=== PATIENT | female | born 1990 | race Caucasian/White ===

== ENCOUNTER 2022-03-11 12:14 | Emergency (ER) | payer MEDICAID ==
[~2022-03-11] VITALS: Ht 170.2 cm; Wt 108.0 kg
[2022-03-11 12:21] VITALS: BP_SYST 138
--- NOTE | 2022-03-11 15:00 | NUR ---
DR KAHN IN FOR EXAM
[2022-03-11 15:38] LABS: BASOPHILS # (AUTO) 0.1 K/uL (0.0-0.2); BASOPHILS % (AUTO) 0.6 % (0.0-2.0); EOSINOPHILS % (AUTO) 0.6 % (0.0-4.0); HEMATOCRIT 35.2 % (36-48); HEMOGLOBIN 11.4 g/dL (12.0-16.0); LYMPHOCYTES # (AUTO) 2.8 K/uL (1.0-5.5); LYMPHOCYTES % (AUTO) 33.9 % (20.5-51.5); MEAN CORPUSCULAR HEMOGLOBIN 22 pg (27-31); MEAN CORPUSCULAR HGB CONC 32 % (32-36); MEAN CORPUSCULAR VOLUME 67 fL (79.0-98.0); MONOCYTES # (AUTO) 0.4 K/uL (0.0-1.0); MONOCYTES % (AUTO) 4.3 % (1.7-9.3); NEUTROPHILS % (AUTO) 60.6 % (40.0-70.0); PLATELET COUNT (AUTO) 260 K/uL (130-430); RED BLOOD CELL COUNT(AUTO) 5.25 MIL/uL (4.2-6.2); RED CELL DISTRIBUTION WIDTH 17.3 % (9.0-15.0); WHITE BLOOD COUNT (AUTO) 8.3 K/uL (4.8-10.8)
[2022-03-11 16:04] LABS: CALCIUM 8.9 mg/dL (8.4-11.0); CREATININE 0.61 mg/dL (0.55-1.30); POTASSIUM 3.9 mmol/L (3.5-5.1)
[2022-03-11 16:13] LABS: BILIRUBIN,URINE NEGATIVE (NEGATIVE); BLOOD, URINE NEGATIVE (NEGATIVE); COLOR,URINE YELLOW (YELLOW); GLUCOSE,URINE NEGATIVE (NEGATIVE); KETONES,URINE TRACE (NEGATIVE); LEUKOCYTE ESTERASE ,URINE TRACE (NEGATIVE); NITRITE, URINE NEGATIVE (NEGATIVE); PROTEIN URINE NEGATIVE (NEGATIVE); UROBILINOGEN,URINE 0.2 (0.2-1.0)
[2022-03-11 16:15] LABS: CLARITY/URINE SLIGHTLY HAZY (CLEAR)
[2022-03-11 16:37] LABS: BACTERIA,URINE MODERATE /HPF (None Seen); MUCUS,URINE 2+ /LPF (None Seen); RBC,URINE 0-3 /HPF (0-3)
--- NOTE | 2022-03-11 16:56 | NUR ---
Patient given written and verbal discharge instructions and verbalizes understanding. ER MD discussed with patient the results and treatment provided. Patient in stable condition. ID arm band removed. Patient educated on pain management and to follow up with PMD. Pain Scale [0]. Opportunity for questions provided and answered. Medication side effect fact sheet provided.
[2022-03-11 16:57] VITALS: BP_SYST 127
== END 2022-03-11 16:56 | disposition home or self-care (01) ==
LOC: SED 12:14
DX: O99.611 Diseases of the digestive system complicating pregnancy, first trimester (principal); Z3A.01 Less than 8 weeks gestation of pregnancy
CPT/HCPCS: 36415; 76801; 80048; 81000; 81025; 84702; 85025; 87086; 99284

== ENCOUNTER 2022-03-25 15:35 | Emergency (ER) | payer MEDICAID ==
[~2022-03-25] VITALS: Ht 167.6 cm; Wt 108.0 kg
[2022-03-25 15:40] VITALS: BP_SYST 154
--- NOTE | 2022-03-25 15:40 | NUR ---
Patient triaged and placed in waiting room. VSS and patient appears in no acute distress at this time. Accompanied by SPOUSE, awaiting available bed, and MD notified of need for MSE.
[2022-03-25 16:30] LABS: BASOPHILS % (AUTO) 0.4 % (0.0-2.0); EOSINOPHILS # (AUTO) 0.1 K/uL (0.0-0.4); EOSINOPHILS % (AUTO) 0.8 % (0.0-4.0); HEMATOCRIT 33.5 % (36-48); HEMOGLOBIN 10.6 g/dL (12.0-16.0); LYMPHOCYTES # (AUTO) 2.4 K/uL (1.0-5.5); LYMPHOCYTES % (AUTO) 27.5 % (20.5-51.5); MEAN CORPUSCULAR HEMOGLOBIN 22 pg (27-31); MEAN CORPUSCULAR HGB CONC 32 % (32-36); MEAN CORPUSCULAR VOLUME 68 fL (79.0-98.0); MONOCYTES # (AUTO) 0.5 K/uL (0.0-1.0); MONOCYTES % (AUTO) 5.8 % (1.7-9.3); NEUTROPHILS # (AUTO) 5.7 K/uL (1.8-7.7); NEUTROPHILS % (AUTO) 65.5 % (40.0-70.0); PLATELET COUNT (AUTO) 271 K/uL (130-430); RED BLOOD CELL COUNT(AUTO) 4.94 MIL/uL (4.2-6.2); RED CELL DISTRIBUTION WIDTH 17.9 % (9.0-15.0); WHITE BLOOD COUNT (AUTO) 8.7 K/uL (4.8-10.8)
--- NOTE | 2022-03-25 17:30 | NUR ---
BROUGHT BACK TO BED #8 AND REPORT GIVEN TO BASHIR
--- NOTE | 2022-03-25 18:10 | NUR ---
Pt D/C in no acute distress AOx4 GCS 15. self ambulated out of ED accompanied by . Pt verbalized understanding of D/C instructions.
[2022-03-25 18:11] VITALS: BP_SYST 138
== END 2022-03-25 18:13 | disposition home or self-care (01) ==
LOC: SED 15:35
DX: O20.0 Threatened abortion (principal); Z3A.01 Less than 8 weeks gestation of pregnancy
CPT/HCPCS: 36415; 76817; 76856-TC; 84702; 85025; 86900; 86901; 99284

== ENCOUNTER 2023-05-14 09:02 | Emergency (ER) | payer MEDICAID ==
[~2023-05-14] VITALS: Ht 167.6 cm; Wt 108.9 kg
[2023-05-14 09:31] VITALS: BP_SYST 149; PULSE 86; RESP 20; TEMP 98.3; O2SAT 98
[2023-05-14 09:51] LABS: BASOPHILS % (AUTO) 0.5 % (0.0-2.0); EOSINOPHILS # (AUTO) 0.1 K/uL (0.0-0.4); EOSINOPHILS % (AUTO) 0.7 % (0.0-4.0); HEMATOCRIT 37.7 % (36-48); HEMOGLOBIN 11.7 g/dL (12.0-16.0); LYMPHOCYTES # (AUTO) 2.5 K/uL (1.0-5.5); LYMPHOCYTES % (AUTO) 26.1 % (20.5-51.5); MEAN CORPUSCULAR HEMOGLOBIN 22 pg (27-31); MEAN CORPUSCULAR HGB CONC 31 % (32-36); MEAN CORPUSCULAR VOLUME 70 fL (79.0-98.0); MONOCYTES # (AUTO) 0.5 K/uL (0.0-1.0); MONOCYTES % (AUTO) 5.6 % (1.7-9.3); NEUTROPHILS # (AUTO) 6.5 K/uL (1.8-7.7); NEUTROPHILS % (AUTO) 67.1 % (40.0-70.0); PLATELET COUNT (AUTO) 285 K/uL (130-430); RED BLOOD CELL COUNT(AUTO) 5.38 MIL/uL (4.2-6.2); RED CELL DISTRIBUTION WIDTH 17.6 % (9.0-15.0); WHITE BLOOD COUNT (AUTO) 9.7 K/uL (4.8-10.8)
[2023-05-14 10:12] LABS: CALCIUM 9.3 mg/dL (8.4-11.0); CREATININE 0.61 mg/dL (0.55-1.30); POTASSIUM 3.7 mmol/L (3.5-5.1)
[2023-05-14 10:16] LABS: BILIRUBIN,URINE NEGATIVE (NEGATIVE); BLOOD, URINE 2+ (NEGATIVE); CLARITY/URINE Slightly Cloudy (CLEAR); COLOR,URINE YELLOW (YELLOW); GLUCOSE,URINE NEGATIVE (NEGATIVE); KETONES,URINE NEGATIVE (NEGATIVE); LEUKOCYTE ESTERASE ,URINE 1+ (NEGATIVE); NITRITE, URINE NEGATIVE (NEGATIVE); PROTEIN URINE NEGATIVE (NEGATIVE); UROBILINOGEN,URINE 0.2 (0.2-1.0)
[2023-05-14 10:26] LABS: ALBUMIN 3.3 g/dL (3.4-4.8); TOTAL BILIRUBIN 0.3 mg/dL (0.0-1.0); TOTAL PROTEIN, SERUM 7.9 g/dL (6.4-8.3)
[2023-05-14 10:40] LABS: BACTERIA,URINE FEW /HPF (None Seen)
[2023-05-14 11:41] VITALS: BP_SYST 149; PULSE 86; RESP 20; TEMP 98.3; O2SAT 98
[2023-05-14 11:49] LABS: ANISOCYTOSIS 1+; HYPOCHROMASIA 1+
== END 2023-05-14 11:45 | disposition home or self-care (01) ==
LOC: SED 09:02
DX: O26.891 Other specified pregnancy related conditions, first trimester (principal); Z3A.01 Less than 8 weeks gestation of pregnancy; Z79.899 Other long term (current) drug therapy
CPT/HCPCS: 36415; 76802; 80053; 81000; 81025; 83690; 84702; 85025; 87086; 99284

== ENCOUNTER 2024-03-04 18:20 | Emergency (ER) | payer MEDICAID ==
[~2024-03-04] VITALS: Ht 167.6 cm; Wt 106.6 kg
[2024-03-04 18:45] VITALS: BP_SYST 131; PULSE 79; RESP 17; TEMP 97.9; O2SAT 99
[2024-03-04 20:18] LABS: BILIRUBIN,URINE NEGATIVE (NEGATIVE); BLOOD, URINE 2+ (NEGATIVE); CLARITY/URINE CLOUDY (CLEAR); COLOR,URINE YELLOW (YELLOW); GLUCOSE,URINE NEGATIVE (NEGATIVE); KETONES,URINE NEGATIVE (NEGATIVE); LEUKOCYTE ESTERASE ,URINE NEGATIVE (NEGATIVE); NITRITE, URINE NEGATIVE (NEGATIVE); PROTEIN URINE TRACE (NEGATIVE); UROBILINOGEN,URINE 0.2 (0.2-1.0)
[2024-03-04 20:22] LABS: BASOPHILS % (AUTO) 0.4 % (0.0-2.0); EOSINOPHILS # (AUTO) 0.1 K/uL (0.0-0.4); EOSINOPHILS % (AUTO) 1.2 % (0.0-4.0); HEMATOCRIT 33.5 % (36-48); LYMPHOCYTES # (AUTO) 3.7 K/uL (1.0-5.5); LYMPHOCYTES % (AUTO) 37.1 % (20.5-51.5); MEAN CORPUSCULAR HEMOGLOBIN 23 pg (27-31); MEAN CORPUSCULAR HGB CONC 33 % (32-36); MEAN CORPUSCULAR VOLUME 71 fL (79.0-98.0); MONOCYTES # (AUTO) 0.7 K/uL (0.0-1.0); MONOCYTES % (AUTO) 7.3 % (1.7-9.3); NEUTROPHILS # (AUTO) 5.3 K/uL (1.8-7.7); PLATELET COUNT (AUTO) 307 K/uL (130-430); RED BLOOD CELL COUNT(AUTO) 4.76 MIL/uL (4.2-6.2); RED CELL DISTRIBUTION WIDTH 16.1 % (9.0-15.0); WHITE BLOOD COUNT (AUTO) 9.9 K/uL (4.8-10.8)
[2024-03-04] MEDS: MORPHINE 4 MG INJ. 4 MG/ML VIAL IVP ONE (20:24)
[2024-03-04] MEDS: ONDANSETRON HCL 4 MG/2 ML VIAL IVP ONE (20:25)
[2024-03-04 20:48] LABS: ALBUMIN 3.7 g/dL (3.4-4.8); BILIRUBIN,DIRECT 0.1 mg/dL (0.0-0.3); CALCIUM 8.9 mg/dL (8.4-11.0); CREATININE 0.74 mg/dL (0.55-1.30); POTASSIUM 3.3 mmol/L (3.5-5.1); TOTAL BILIRUBIN 0.2 mg/dL (0.0-1.0); TOTAL PROTEIN, SERUM 7.4 g/dL (6.4-8.3)
[2024-03-04 21:11] LABS: BACTERIA,URINE FEW /HPF (None Seen); WBC,URINE 0-3 /HPF (0-3)
[2024-03-04 21:12] LABS: HYPOCHROMASIA 1+
[2024-03-04 21:13] LABS: OVALOCYTES FEW; STOMATOCYTES FEW
[2024-03-04] MEDS ORDERED: DOCU-144 PO (21:14)
[2024-03-04] MEDS: POTASSIUM CHLORIDE 20 MEQ/PKT PACKET PO ONE (21:28)
[2024-03-04 21:34] VITALS: BP_SYST 125; PULSE 73; RESP 18; TEMP 98.3; O2SAT 99
== END 2024-03-04 21:34 | disposition home or self-care (01) ==
LOC: SED 18:20
DX: K62.5 Hemorrhage of anus and rectum (principal); K59.00 Constipation, unspecified
CPT/HCPCS: 99284; 96374; 96375; 80076; 80048; 81001; 83690; 85025; 36415; J2405; J2270; 81000; 81015